=== PATIENT | female | born 1950 | race Caucasian/White ===

== ENCOUNTER 2017-07-29 08:23 | Outpatient (CLI) | payer MEDICARE, OTHER ==
[2017-07-29] MEDS ORDERED: ISOVUE-370 76%-LOCM 1 ML ONE (13:06)
== END 2017-07-29 08:24 | disposition home or self-care (01) ==
LOC: BICCT 08:23
PROVIDERS: ATTEND Family Medicine
DX: R10.9 Unspecified abdominal pain (principal); R91.8 Other nonspecific abnormal finding of lung field; K44.9 Diaphragmatic hernia without obstruction or gangrene; K57.30 Diverticulosis of large intestine without perforation or abscess without bleeding; K43.9 Ventral hernia without obstruction or gangrene; K42.9 Umbilical hernia without obstruction or gangrene; K86.89 Other specified diseases of pancreas; Z90.49 Acquired absence of other specified parts of digestive tract
CPT/HCPCS: 74177

== ENCOUNTER 2018-11-26 06:12 | Emergency (ER) | payer MEDICARE, OTHER ==
[2018-11-26] MEDS ORDERED: Morphine 4 MG/ML VIAL ONE (06:37)
[2018-11-26] MEDS ORDERED: Ondansetron PF 4 MG/2 ML Vial ONE (06:37)
[2018-11-26 07:05] LABS: #Eosinphils 0.1 thou/uL (0.0-0.7); #Lymphocytes 0.8 thou/uL (1.20-3.40); #Monocytes 0.7 thou/uL (0.11-0.59); #Neutrophils 7.4 thou/uL (1.40-6.50); %Basophils 0.5 % (0.0-1.0); %Eosinophils 0.6 % (0.0-10.0); %Lymphocytes 8.8 % (21.0-51.0); %Monocytes 8.1 % (0.0-10.0); Hemoglobin 14.5 g/dL (12.0-16.0); Mean Corpuscular Hemoglobin 29.4 pg (27.0-31.0); Mean Corpuscular Volume 86.4 fL (78.0-98.0); Mean Platelet Volume 7.6 fL (7.4-10.4); Platelet Count 238 thou/uL (130-400); RBC Distribution Width 11.8 % (11.5-14.5); Red Blood Cell (RBC) Count 4.94 mill/uL (4.20-5.40); White Blood Cell (WBC) Count 9.1 thou/uL (4.8-10.8)
[2018-11-26 07:21] LABS: Bacteria/HPF None Seen HPF (None Seen); Bilirubin Negative (Negative); Blood, Urine 1+ (Negative); Clarity Clear (Clear); Glucose, Urine (Dipstick) Normal (Negative); Leukocyte Negative Leu/uL (Negative); Nitrite Negative (Negative); Protein, Urine (Dipstick) Negative (Neg-Trace); RBC/HPF 0-3 HPF (0-3); Squamous Epithelial None Seen HPF (0-3); Urobilinogen Normal mg/dL (Less than 2); WBC/HPF None Seen HPF (0-3)
[2018-11-26 07:31] LABS: ALT (SGPT) 19 U/L (8-55); AST (SGOT) 19 U/L (5-34); Albumin 4.1 g/dL (3.4-4.8); Alkaline Phosphatase 84 U/L (40-150); Anion Gap 12 mmol/L (10-20); BUN (Urea Nitrogen) 18 mg/dL (9.8-20.1); Bilirubin, Total 0.6 mg/dL (0.2-1.2); Calc. Creatinine Clearance 0 mL/min (70-130); Calcium 9.2 mg/dL (7.8-10.44); Carbon Dioxide 24 mmol/L (23-31); Chloride 105 mmol/L (98-107); Estimated GFR-MDRD 64; Globulin 2.7 g/dL (2.4-3.5); Glucose 143 mg/dL (80-115); Potassium 3.7 mmol/L (3.5-5.1); Protein, Total 6.8 g/dL (6.0-8.3); Sodium 137 mmol/L (136-145)
[2018-11-26] MEDS ORDERED: Ketorolac Tromethamine 30 MG/ML VIAL ONE (08:01)
== END 2018-11-26 08:15 | disposition home or self-care (01) ==
LOC: ERS 06:12
DX: N23 Unspecified renal colic (principal); E78.5 Hyperlipidemia, unspecified; I10 Essential (primary) hypertension
CPT/HCPCS: 36415; 80053; 81003; 81015; 85025; 96361; 96374; 96375; J1885; J2270; J2405

== ENCOUNTER 2018-11-30 21:59 | Emergency (ER) | payer MEDICARE, OTHER ==
[2018-11-30 22:48] LABS: Bacteria/HPF None Seen HPF (None Seen); Bilirubin Negative (Negative); Blood, Urine Negative (Negative); Clarity Clear (Clear); Glucose, Urine (Dipstick) Normal (Negative); Leukocyte 250 Leu/uL (Negative); Nitrite Negative (Negative); Protein, Urine (Dipstick) Negative (Neg-Trace); Squamous Epithelial 0-3 HPF (0-3); Urobilinogen Normal mg/dL (Less than 2); WBC/HPF 21-50 HPF (0-3)
[2018-11-30 23:28] LABS: #Eosinphils 0.1 thou/uL (0.0-0.7); #Lymphocytes 1.3 thou/uL (1.20-3.40); #Monocytes 0.7 thou/uL (0.11-0.59); #Neutrophils 4.1 thou/uL (1.40-6.50); %Basophils 0.5 % (0.0-1.0); %Eosinophils 1.9 % (0.0-10.0); %Lymphocytes 21.4 % (21.0-51.0); %Monocytes 10.9 % (0.0-10.0); %Neutrophils 65.3 % (42.0-75.0); Hemoglobin 14.3 g/dL (12.0-16.0); Mean Corpuscular HGB CONC 33.9 g/dL (32.0-36.0); Mean Corpuscular Hemoglobin 29.9 pg (27.0-31.0); Mean Corpuscular Volume 88.1 fL (78.0-98.0); Mean Platelet Volume 7.2 fL (7.4-10.4); Platelet Count 273 thou/uL (130-400); RBC Distribution Width 11.9 % (11.5-14.5); Red Blood Cell (RBC) Count 4.78 mill/uL (4.20-5.40); White Blood Cell (WBC) Count 6.3 thou/uL (4.8-10.8)
[2018-11-30 23:43] LABS: ALT (SGPT) 26 U/L (8-55); AST (SGOT) 21 U/L (5-34); Albumin 4.3 g/dL (3.4-4.8); Alkaline Phosphatase 91 U/L (40-150); Anion Gap 11 mmol/L (10-20); BUN (Urea Nitrogen) 19 mg/dL (9.8-20.1); Bilirubin, Total 0.3 mg/dL (0.2-1.2); Calc. Creatinine Clearance 0 mL/min (70-130); Calcium 9.9 mg/dL (7.8-10.44); Carbon Dioxide 29 mmol/L (23-31); Chloride 103 mmol/L (98-107); Estimated GFR-MDRD 52; Globulin 2.9 g/dL (2.4-3.5); Glucose 103 mg/dL (80-115); Lipase 36 U/L (8-78); Potassium 3.9 mmol/L (3.5-5.1); Protein, Total 7.2 g/dL (6.0-8.3); Sodium 139 mmol/L (136-145)
[2018-12-01] MEDS ORDERED: cefTRIAXone\\ROCEPHIN 1 GM VIAL ONE ×2 (00:44→00:50)
[2018-12-01] MEDS ORDERED: Lidocaine 1% (PF) 30 ML VIAL ONE (00:50)
--- NOTE | 2018-12-01 08:45 | CT ---
PRELIMINARY REPORT/[facility]/EMERGENCY AFTER HOURS PROCEDURE: EXAM: CT Abdomen and Pelvis Without Contrast EXAM DATE/TIME: 12/01/2018 12:28 AM CLINICAL HISTORY: 68 years old, female; Abdominal pain; Acute; Patient HX: [id number] presents to ED for right flank pain. PT reports last week while traveling began having rust colored urine, no UTI SX. Then last [place] n having flank pain, went to [facility] ED, passed 3 stones, CT showed small stone, less than 5mm. Since then PT has been having some intermittent pain that was managed w nsaids. Tonight began having worse pain, took hydrocodone, did not relieve SX. Hx- HTN, hyperkalemia, restless leg syndrome; Colec jaspal 5 years ago for diverticulitis, also appendix and gallbladder removed. TECHNIQUE: Imaging protocol: Computed tomography of the abdomen and pelvis without contrast. COMPARISON: No relevant prior studies available. FINDINGS: Lungs: No consolidations. Mediastinum: Small hiatal hernia. Liver: No mass. Gallbladder and bile ducts: Surgical changes of cholecystectomy. No ductal dilation. Pancreas: No mass or ductal dilation. Spleen: No mass. Adrenals: No mass. Kidneys and ureters: There is a 4 x 2 mm stone in the distal right ureter at the level of S1 resultin g in moderate hydroureteronephrosis. 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 There is a 2 mm stone in the superior pole moiety. Normal appearance of the left kidney. Stomach and bowel: Surgical sutures around a loop of small bowel in the anterior lower abdomen. No bowel obstruction. Surgical sutures around the sigmoid colon. Colonic diverticulosis without evide nce of acute diverticulitis. Appendix: The appendix is not identified. Intraperitoneal space: No free air or free fluid. Vasculature: No abdominal aortic aneurysm. Lymph nodes: No lymphadenopathy. Bladder: The bladder is not distended for evaluation. Reproductive: Possible surgical changes of supracervical hysterectomy. No adnexal masses. Bones/joints: No suspicious bone lesions. Soft tissues: Diastasis rectus. IMPRESSION: 1. 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 2. There is a 2 mm stone in the superior moiety of the right kidney. No left renal stones. Thank you for allowing us to participate in the care of your patient. Dictated and Authenticated by: Suad Rodriguez MD 12/01/2018 12:52 AM Central Time ([place] & [place]) FINAL REPORT EMERGENT AFTER HOURS CT ABDOMEN AND PELVIS PERFORMED WITHOUT CONTRAST ENHANCEMENT: HISTORY: Right flank pain. FINDINGS: The lung bases show evidence for some air trapping. Some interstitial reticular changes in the left base could be related to scar. There is a small hiatal hernia present. The liver, spleen, and pancreas appear unremarkable given limitations of a noncontrast study. The ga llbladder has been removed. Right and left adrenal glands and right and left kidneys are normal in size. There is a duplicated r ight collecting system. It may be a complete duplication. There is dilatation of the upper pole col lecting system. There is a 2 mm upper pole renal calculus. In addition, within the dilated upper po le collecting system, there is an approximately 2-3 mm calculus which is located at the level of the pelvic rim. There is no pelvic lymphadenopathy or mass. There are postoperative changes of the bowel including changes of the sigmoid and small bowel seen. Some minimal sigmoid diverticulosis noted. IMPRESSION: 1. 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 2. Hiatal hernia. 3. Minimal colonic diverticulosis. 4. Postoperative changes of the sigmoid colon and small bowel. 5. A 2 mm upper pole right renal calculus. 6. Other incidental findings as noted above. 7. This report is in agreement with the temporary report issued by [facility]. POS: OFF
== END 2018-12-01 01:35 | disposition home or self-care (01) ==
LOC: ERS 21:59
DX: N39.0 Urinary tract infection, site not specified (principal); N13.6 Pyonephrosis; E78.5 Hyperlipidemia, unspecified; I10 Essential (primary) hypertension
CPT/HCPCS: 36415; 74176; 80053; 81003; 81015; 83690; 85025; 87040; 87086; 96372; J0696; J2001

== ENCOUNTER 2022-01-22 09:43 | Emergency (ER) | payer MEDICARE, OTHER ==
[2022-01-22] MEDS ORDERED: HYDROcodone/Acetaminophen 5/325 mg Tablet ONE (11:10)
== END 2022-01-22 11:40 | disposition home or self-care (01) ==
LOC: ERS 09:43
DX: S52.572A Other intraarticular fracture of lower end of left radius, initial encounter for closed fracture (principal); I10 Essential (primary) hypertension; E78.5 Hyperlipidemia, unspecified; W01.0XXA Fall on same level from slipping, tripping and stumbling without subsequent striking against object, initial encounter

== ENCOUNTER 2022-07-22 01:25 | Emergency (ER) | payer MEDICARE, OTHER ==
[2022-07-22 01:54] LABS: Bilirubin Negative (Negative); Blood, Urine Negative (Negative); Clarity Clear (Clear); Glucose, Urine (Dipstick) Normal (Negative); Ketone, Urine Negative (Negative); Leukocyte Negative Leu/uL (Negative); Nitrite Negative (Negative); Protein, Urine (Dipstick) Negative (Neg-Trace); Specific Gravity, Urine 1.006 (1.002-1.036); Urobilinogen Normal mg/dL (Less than 2); pH, Urine 7.5 (5.0-9.0)
[2022-07-22 03:17] LABS: #Eosinphils 0.1 thou/uL (0.0-0.7); #Lymphocytes 1.1 thou/uL (1.20-3.40); #Monocytes 0.7 thou/uL (0.11-0.59); #Neutrophils 3.6 thou/uL (1.40-6.50); %Basophils 0.7 % (0.0-1.0); %Eosinophils 1.7 % (0.0-10.0); %Lymphocytes 20.3 % (21.0-51.0); %Monocytes 12.8 % (0.0-10.0); %Neutrophils 64.6 % (42.0-75.0); Hemoglobin 14.1 g/dL (12.0-16.0); Mean Corpuscular Hemoglobin 31.1 pg (27.0-31.0); Mean Corpuscular Volume 88.9 fl (78.0-98.0); Mean Platelet Volume 7.6 fL (7.4-10.4); Platelet Count 233 10x3/uL (130-400); RBC Distribution Width 12.2 % (11.5-14.5); Red Blood Cell (RBC) Count 4.55 mill/uL (4.20-5.40); White Blood Cell (WBC) Count 5.6 10x3/uL (4.8-10.8)
[2022-07-22 03:40] LABS: ALT (SGPT) 17 U/L (8-55); AST (SGOT) 20 U/L (5-34); Alkaline Phosphatase 58 U/L (40-110); Anion Gap 14 mmol/L (10-20); BUN (Urea Nitrogen) 18 mg/dL (9.8-20.1); Bilirubin, Total 0.3 mg/dL (0.2-1.2); Calc. Creatinine Clearance 0 mL/min (70-130); Calcium 9.4 mg/dL (7.8-10.44); Carbon Dioxide 25 mmol/L (23-31); Chloride 108 mmol/L (98-107); Estimated GFR 62; Globulin 2.5 g/dL (2.4-3.5); Glucose 153 mg/dL (83-110); Potassium 4.2 mmol/L (3.5-5.1); Protein, Total 6.5 g/dL (5.8-8.1); Sodium 143 mmol/L (136-145)
== END 2022-07-22 04:05 | disposition home or self-care (01) ==
LOC: ERS 01:25
DX: R00.2 Palpitations (principal); E78.5 Hyperlipidemia, unspecified; I10 Essential (primary) hypertension
CPT/HCPCS: 36415; 80053; 81003; 84484; 85025; 93005

== ENCOUNTER 2023-02-10 08:03 | Outpatient (CLI) | payer MEDICARE, OTHER | END 2023-02-10 08:04 | disposition home or self-care (01) | LOC: BICCT 08:03 | PROVIDERS: ATTEND Family Medicine | DX: N13.2 Hydronephrosis with renal and ureteral calculous obstruction (principal); Z98.890 Other specified postprocedural states | CPT/HCPCS: 74176 ==